=== PATIENT | female | born 1985 | race African-American/Black ===

== ENCOUNTER 2020-05-07 18:32 | Emergency (ER) | payer MEDICAID, OTHER ==
[~2020-05-07] VITALS: Ht 175.3 cm; Wt 106.0 kg
[2020-05-07] MEDS ORDERED: ACETAMINOPHEN 325MG TABLET PO ONE (19:15)
[2020-05-07 20:15] VITALS: BP 133/78
== END 2020-05-07 20:22 | disposition home or self-care (01) ==
LOC: ER 18:32
DX: S06.0X0A Concussion without loss of consciousness, initial encounter (principal); S00.83XA Contusion of other part of head, initial encounter; J45.909 Unspecified asthma, uncomplicated; F17.210 Nicotine dependence, cigarettes, uncomplicated; V00.831A Fall from motorized mobility scooter, initial encounter; W22.8XXA Striking against or struck by other objects, initial encounter; Y93.89 Activity, other specified; Y92.018 Other place in single-family (private) house as the place of occurrence of the external cause
CPT/HCPCS: 99282

== ENCOUNTER 2020-05-25 11:36 | Emergency (ER) | payer MEDICAID ==
[~2020-05-25] VITALS: Ht 175.3 cm; Wt 120.0 kg
[2020-05-25] MEDS ORDERED: ACET-2708 PO (11:57)
[2020-05-25] MEDS ORDERED: IBUPROFEN 600MG TABLET PO ONE (13:15)
[2020-05-25 13:35] VITALS: BP 139/85
== END 2020-05-25 17:08 | disposition home or self-care (01) ==
LOC: ER 11:36
DX: H66.92 Otitis media, unspecified, left ear (principal); J45.909 Unspecified asthma, uncomplicated
CPT/HCPCS: 81025; 99282

== ENCOUNTER 2023-05-23 03:45 | Emergency (ER) | payer MEDICAID ==
[~2023-05-23] VITALS: Ht 175.3 cm; Wt 95.0 kg
[~2023-05-23 03:45] MED LIST: ACET-2708 PO
[2023-05-23 03:53] VITALS: O2SAT 99
[2023-05-23 04:38] LABS: BASOPHILS % 0.6 % (0.0-2.0); EOSINOPHILS % 0.5 % (0.0-5.0); HEMATOCRIT. 39.1 % (36.0-48.0); HEMOGLOBIN. 12.4 g/dL (12.0-16.0); LYMPHOCYTES % 25.2 % (20.0-50.0); MEAN CORPUSCULAR HGB CONC 31.7 g/dL (31.0-37.0); MEAN PLATELET VOLUME 8.6 fl (7.4-10.4); MONOCYTES % 6.3 % (2.0-8.0); NEUTROPHILS % 67.4 % (40.0-76.0); PLATELET 352 x1000/uL (130-400); RED BLOOD CELL COUNT 4.76 mill/uL (4.2-5.4); RED CELL DISTRIBUTION WIDTH 15.9 % (11.6-14.6); WHITE BLOOD COUNT 8.1 x1000/uL (4.5-11.0)
[2023-05-23 04:53] LABS: ALANINE AMINOTRANSFERASE 27 IU/L (10-49); ALBUMIN 4.2 g/dL (3.2-4.8); ASPARTATE AMINOTRANSFERASE 18 IU/L (<34); BILIRUBIN TOTAL 0.3 mg/dL (0.1-1.0); CALCIUM 9.6 mg/dL (8.7-10.4); CARBON DIOXIDE 19 mEq/L (21-32); CHLORIDE 103 mEq/L (98-107); CREATININE 0.7 mg/dL (0.6-1.0); GLUCOSE 239 mg/dL (70-105); POTASSIUM 3.9 mEq/L (3.5-5.1); SODIUM 135 mEq/L (136-145); UREA NITROGEN BLOOD 10 mg/dL (9-23)
[2023-05-23 06:24] LABS: CLARITY URINE TURBID (CLEAR); COLOR URINE DARK YELLOW (YELLOW); GLUCOSE URINE TRACE (NEGATIVE); KETONES URINE NEGATIVE (NEGATIVE); LEUKOCYTE ESTERASE URINE 1+ (NEGATIVE); NITRITE URINE NEGATIVE (NEGATIVE); OCCULT BLOOD URINE NEGATIVE (NEGATIVE); PH URINE 5.5 (4.5-8.0); PROTEIN URINE 1+ (NEGATIVE); SPECIFIC GRAVITY URINE 1.029 (1.005-1.030)
[2023-05-23 07:37] LABS: AMORPHOUS SEDIMENT URINE 4+ /lpf; SQUAMOUS EPITHELIAL CELL URINE FEW /lpf (RARE/1+)
[2023-05-23 07:38] LABS: BACTERIA URINE 2+
[2023-05-23 07:39] LABS: RBC URINE NONE SEEN /hpf (0-2)
[2023-05-23] MEDS ORDERED: MORPHINE SULFATE 10 MG/ML CPJ IM ONE (08:45)
[2023-05-23] MEDS ORDERED: MAGNESIUM/ALUMINUM HYDROXIDE/SIMETHICONE 30ML UDC PO ONE (08:45)
[2023-05-23] MEDS ORDERED: ONDANSETRON 4MG ODT PO ONE (08:45)
[2023-05-23] MEDS ORDERED: PANTOPRAZOLE 40MG DR TABLET PO ONE (08:45)
[2023-05-23] MEDS ORDERED: ACETAMINOPHEN 325MG TABLET PO ONE (08:45)
[2023-05-23] MEDS ORDERED: SODIUM CHLORIDE 0.9% 1,000 ML IV ONE (10:00)
[2023-05-23] MEDS ORDERED: ONDANSETRON 4MG ODT PO SCH (11:00)
[2023-05-23] MEDS ORDERED: MORPHINE SULFATE 10 MG/ML CPJ IM SCH (11:00)
[2023-05-23] MEDS ORDERED: ACETAMINOPHEN 325MG TABLET PO SCH (11:00)
[2023-05-23] MEDS ORDERED: MAGNESIUM/ALUMINUM HYDROXIDE/SIMETHICONE 30ML UDC PO SCH (11:00)
[2023-05-23] MEDS ORDERED: PANTOPRAZOLE 40MG DR TABLET PO SCH (11:00)
[2023-05-23 12:30] LABS: *AMPHETAMINES SCREEN URINE NEGATIVE (NEGATIVE); *BARBITURATES SCREEN URINE NEGATIVE (NEGATIVE); *BENZODIAZEPINES SCREEN URINE NEGATIVE (NEGATIVE); *COCAINE SCREEN URINE NEGATIVE (NEGATIVE); CANNABINOID URINE SCREEN PRESUMPTIVE POSITIVE (NEGATIVE); ECSTASY MDMA SCREEN URINE NEGATIVE (NEGATIVE); METHADONE URINE SCREEN Neg (NEGATIVE); OPIATES URINE SCREEN NEGATIVE (NEGATIVE); PHENCYCLIDINE URINE SCREEN NEGATIVE (NEGATIVE)
[2023-05-23] MEDS ORDERED: CEFP200T13 MT (15:11)
[2023-05-23] MEDS ORDERED: MAG-55 MT (15:12)
[2023-05-23] MEDS ORDERED: FAMO40TA70 MT (15:12)
[2023-05-23] MEDS ORDERED: CEFTRIAXONE 1GM PREMIX 50 ML IV ONE (15:15)
[2023-05-23 16:32] VITALS: BP 132/76; PULSE 92; RESP 17; TEMP 98.8
== END 2023-05-23 16:37 | disposition home or self-care (01) ==
LOC: ER 04:13
DX: N39.0 Urinary tract infection, site not specified (principal); K29.70 Gastritis, unspecified, without bleeding; J45.909 Unspecified asthma, uncomplicated
CPT/HCPCS: 80053; 80305; 81003; 81025; 83690; 85025; 36415; 74176; 76705; 93005; 96361; 96365; 96372; 99285; Q0162; J0696; J2270; J7030; Z7610

== ENCOUNTER 2024-05-31 01:59 | Emergency (ER) | payer MEDICAID ==
[~2024-05-31] VITALS: Ht 177.8 cm; Wt 91.0 kg
[~2024-05-31 01:59] MED LIST changes: +CEFP200T13 MT; +FAMO40TA70 MT; +MAG-55 MT
[2024-05-31 02:11] VITALS: O2SAT 98
[2024-05-31 03:24] LABS: HCG SCREEN NEGATIVE
[2024-05-31] MEDS: ACETAMINOPHEN 325MG TABLET PO NR (04:40)
[2024-05-31] MEDS ORDERED: ACET-2708 MT (04:53)
[2024-05-31] MEDS ORDERED: ALBU90AE INH (04:53)
[2024-05-31] MEDS ORDERED: PANT40TA51 MT (04:53)
[2024-05-31 05:03] VITALS: BP 115/60; PULSE 62; RESP 19; TEMP 36.6; O2SAT 100
[2024-05-31] MEDS: MAGNESIUM/ALUMINUM HYDROXIDE/SIMETHICONE 30ML UDC PO ONE (05:03)
== END 2024-05-31 08:32 | disposition home or self-care (01) ==
LOC: ER 02:47
DX: B34.9 Viral infection, unspecified (principal); J45.909 Unspecified asthma, uncomplicated; Z79.899 Other long term (current) drug therapy; Z20.822 Contact with and (suspected) exposure to COVID-19
CPT/HCPCS: 81025; 84703; 87426; 87804; 99283

== ENCOUNTER 2024-06-28 16:28 | Emergency (ER) | payer MEDICAID ==
[~2024-06-28] VITALS: Ht 175.3 cm; Wt 90.0 kg
[~2024-06-28 16:28] MED LIST changes: +ACET-2708 MT; +ALBU90AE INH; +PANT40TA51 MT
[2024-06-28 16:33] VITALS: TEMP 36.6; O2SAT 98
[2024-06-28 18:49] VITALS: PULSE 86
[2024-06-28] MEDS: KETOROLAC 30MG/ML VIAL IM ONE (18:49)
[2024-06-28 18:50] VITALS: BP 148/86; RESP 16
[2024-06-28] MEDS: LIDOCAINE 5% PATCH TOP SCH (18:50)
[2024-06-28] MEDS: CYCLOBENZAPRINE 10MG TABLET PO ONE (18:50)
[2024-06-28] MEDS ORDERED: ACET-2708 MT (19:51)
[2024-06-28] MEDS ORDERED: NAPR-679 MT (19:51)
[2024-06-28] MEDS ORDERED: CYCL5TAB3 MT (19:51)
[2024-06-28] MEDS ORDERED: LIDO700A15 TP (19:56)
== END 2024-06-28 19:59 | disposition home or self-care (01) ==
LOC: ER 16:28
DX: M62.830 Muscle spasm of back (principal); J45.909 Unspecified asthma, uncomplicated; F10.90 Alcohol use, unspecified, uncomplicated; Z79.1 Long term (current) use of non-steroidal anti-inflammatories (NSAID); Z79.899 Other long term (current) drug therapy; Y90.9 Presence of alcohol in blood, level not specified
CPT/HCPCS: 99283; 96372; J1885

== ENCOUNTER 2024-07-22 17:16 | Emergency (ER) | payer MEDICAID ==
[~2024-07-22] VITALS: Ht 167.6 cm; Wt 95.0 kg
[~2024-07-22 17:16] MED LIST changes: +CYCL5TAB3 MT; +LIDO700A15 TP; +NAPR-679 MT
[2024-07-22 17:19] VITALS: BP 131/80; PULSE 67; RESP 18; TEMP 37.1; O2SAT 98
[2024-07-22 19:19] LABS: CARBON DIOXIDE 24 mEq/L (21-32); CHLORIDE 109 mEq/L (98-107); POTASSIUM 3.5 mEq/L (3.5-5.1); SODIUM 141 mEq/L (136-145)
[2024-07-22 19:20] LABS: CALCIUM 9.3 mg/dL (8.7-10.4)
[2024-07-22 19:25] LABS: CREATININE 0.7 mg/dL (0.6-1.0); GLUCOSE 86 mg/dL (70-105); UREA NITROGEN BLOOD 14 mg/dL (9-23)
[2024-07-22 19:39] LABS: TROPONIN I HIGH SENSITIVITY < 4 ng/L (3.0-34)
[2024-07-22 19:47] LABS: BASOPHILS % 0.9 % (0.0-2.0); EOSINOPHILS % 1.4 % (0.0-5.0); HEMATOCRIT. 30.8 % (36.0-48.0); HEMOGLOBIN. 9.8 g/dL (12.0-16.0); LYMPHOCYTES % 34.9 % (20.0-50.0); MEAN CORPUSCULAR HEMOGLOBIN 26.3 pg (28.0-32.0); MEAN CORPUSCULAR HGB CONC 31.9 g/dL (31.0-37.0); MEAN CORPUSCULAR VOLUME 82.4 fL (81.0-99.0); MEAN PLATELET VOLUME 9.5 fl (7.4-10.4); NEUTROPHILS % 56.8 % (40.0-76.0); PLATELET 315 x1000/uL (130-400); RED BLOOD CELL COUNT 3.74 mill/uL (4.2-5.4); RED CELL DISTRIBUTION WIDTH 16.6 % (11.6-14.6); WHITE BLOOD COUNT 8.6 x1000/uL (4.5-11.0)
== END 2024-07-22 21:07 | disposition left against medical advice (07) ==
LOC: ER 17:16
DX: R07.89 Other chest pain (principal); Z53.21 Procedure and treatment not carried out due to patient leaving prior to being seen by health care provider
CPT/HCPCS: 36415; 71045; 80048; 84484; 85025; 93005

== ENCOUNTER 2024-08-19 21:37 | Emergency (ER) | payer MEDICAID ==
[~2024-08-19] VITALS: Ht 175.3 cm; Wt 91.0 kg
[2024-08-19 21:39] VITALS: TEMP 37.1; O2SAT 100
[2024-08-20] MEDS: LIDOCAINE 5% PATCH TOP SCH (02:40)
[2024-08-20] MEDS: KETOROLAC 30MG/ML VIAL IM ONE (02:40)
[2024-08-20 02:50] LABS: BASOPHILS % 0.8 % (0.0-2.0); DIFFERENTIAL COMMENT 0; EOSINOPHILS % 2.5 % (0.0-5.0); HEMATOCRIT. 33.3 % (36.0-48.0); HEMOGLOBIN. 10.8 g/dL (12.0-16.0); LYMPHOCYTES % 36.3 % (20.0-50.0); MEAN CORPUSCULAR HEMOGLOBIN 25.9 pg (28.0-32.0); MEAN CORPUSCULAR HGB CONC 32.4 g/dL (31.0-37.0); MEAN CORPUSCULAR VOLUME 79.9 fL (81.0-99.0); MEAN PLATELET VOLUME 8.4 fl (7.4-10.4); MONOCYTES % 9.6 % (2.0-8.0); NEUTROPHILS % 50.8 % (40.0-76.0); PLATELET 352 x1000/uL (130-400); RED BLOOD CELL COUNT 4.16 mill/uL (4.2-5.4); RED CELL DISTRIBUTION WIDTH 15.6 % (11.6-14.6); WHITE BLOOD COUNT 9.6 x1000/uL (4.5-11.0)
[2024-08-20 02:57] LABS: CHLORIDE 107 mEq/L (98-107); POTASSIUM 3.8 mEq/L (3.5-5.1); SODIUM 137 mEq/L (136-145)
[2024-08-20 02:59] LABS: CALCIUM 9.8 mg/dL (8.7-10.4); CARBON DIOXIDE 23 mEq/L (21-32)
[2024-08-20 03:00] LABS: PROTHROMBIN TIME 10.9 sec (9.6-11.0)
[2024-08-20 03:04] LABS: CREATININE 0.6 mg/dL (0.6-1.0); GLUCOSE 117 mg/dL (70-105); UREA NITROGEN BLOOD 10 mg/dL (9-23)
[2024-08-20 03:06] LABS: ALANINE AMINOTRANSFERASE 16 IU/L (10-49); ALBUMIN 3.9 g/dL (3.2-4.8); ASPARTATE AMINOTRANSFERASE 11 IU/L (<34); BILIRUBIN DIRECT 0.1 mg/dL (<=3.0); BILIRUBIN TOTAL 0.3 mg/dL (0.1-1.0); PROTEIN TOTAL 7.9 g/dL (6.0-8.3)
[2024-08-20 03:09] LABS: TROPONIN I HIGH SENSITIVITY < 4 ng/L (3.0-34)
[2024-08-20] MEDS ORDERED: LIDO700A15 TP (04:50)
[2024-08-20] MEDS ORDERED: KETO10TA2 MT (04:50)
[2024-08-20 04:55] VITALS: BP 124/65; PULSE 68; RESP 14; O2SAT 99
[2024-08-26] MEDS ORDERED: ACET-283 PO (15:01)
[2024-08-26] MEDS ORDERED: LIDO700A30 TP (15:01)
== END 2024-08-20 04:58 | disposition home or self-care (01) ==
LOC: ER 21:37
DX: M54.2 Cervicalgia (principal); R07.89 Other chest pain; L73.2 Hidradenitis suppurativa; J45.909 Unspecified asthma, uncomplicated
CPT/HCPCS: 99284; 80076; 80048; 83880; 83690; 85025; 85610; 84484; 36415; 71045; 72040; 96372; Z7610; J1885

== ENCOUNTER 2025-03-08 18:55 | Emergency (ER) | payer MEDICAID ==
[~2025-03-08] VITALS: Ht 175.3 cm; Wt 97.0 kg
[~2025-03-08 18:55] MED LIST changes: -ACET-2708 MT; -ACET-2708 PO; +ACET-283 PO; -ALBU90AE INH; -CEFP200T13 MT; -CYCL5TAB3 MT; -FAMO40TA70 MT; +KETO10TA2 MT; -LIDO700A15 TP; +LIDO700A30 TP; -MAG-55 MT; -NAPR-679 MT; -PANT40TA51 MT
[2025-03-08 18:56] VITALS: O2SAT 99
[2025-03-08 19:57] LABS: BASOPHILS % 1.2 % (0.0-2.0); EOSINOPHILS % 1.3 % (0.0-5.0); HEMATOCRIT. 33.4 % (36.0-48.0); HEMOGLOBIN. 10.5 g/dL (12.0-16.0); LYMPHOCYTES % 23.9 % (20.0-50.0); MEAN PLATELET VOLUME 9.0 fl (7.4-10.4); MONOCYTES % 9.9 % (2.0-8.0); NEUTROPHILS % 63.7 % (40.0-76.0); PLATELET 421 x1000/uL (130-400); RED BLOOD CELL COUNT 4.28 mill/uL (4.2-5.4); RED CELL DISTRIBUTION WIDTH 16.0 % (11.6-14.6)
[2025-03-08] MEDS: LORAZEPAM 2MG/ML UD SYRINGE IV NR (20:03)
[2025-03-08] MEDS: KETOROLAC 15MG/ML VIAL IV ONE (20:03)
[2025-03-08] MEDS: MORPHINE SULFATE 4 MG/ML INJ (FOR IV/IM USE) IV ONE (20:03)
[2025-03-08 20:06] LABS: HCG SCREEN NEGATIVE
[2025-03-08 20:08] VITALS: TEMP 37.2
[2025-03-08 20:08] LABS: CREATININE 0.6 mg/dL (0.6-1.0); UREA NITROGEN BLOOD 8 mg/dL (9-23)
[2025-03-08 20:09] LABS: TROPONIN I HIGH SENSITIVITY < 4 ng/L (3.0-34)
[2025-03-08 20:10] LABS: BILIRUBIN DIRECT < 0.1 mg/dL (<=3.0); BILIRUBIN TOTAL 0.3 mg/dL (0.1-1.0); PROTEIN TOTAL 8.0 g/dL (6.0-8.3)
[2025-03-08 20:24] LABS: ASPARTATE AMINOTRANSFERASE < 8 IU/L (<34)
[2025-03-08 21:00] VITALS: BP 114/72; PULSE 98; RESP 15; O2SAT 98
== END 2025-03-08 21:10 | disposition home or self-care (01) ==
LOC: ER 18:55 → CMPBEDREQ 03-09 07:22
DX: M19.90 Unspecified osteoarthritis, unspecified site (principal); J45.909 Unspecified asthma, uncomplicated; Z79.899 Other long term (current) drug therapy
CPT/HCPCS: 80076; 80048; 82550; 84703; 83880; 83690; 83735; 85025; 84484; 36415; 71045; 93005; 96374; 96375; 99285; J1885; J2060; J2270; Z7610 ×2; A4565